=== PATIENT | male | born 2000 | race African-American/Black ===

== ENCOUNTER 2019-04-16 19:53 | Emergency (ER) | payer OTHER ==
[~2019-04-16] VITALS: Ht 177.8 cm; Wt 68.0 kg
[2019-04-16 22:14] LABS: MCH 28.9 pg (26.0-34.0); RDW 12.8 % (10.5-14.5); WBC 2.6 thou/uL (4.0-11.0)
[2019-04-16 22:16] LABS: MCV 84.9 fL (80.0-100.0); PLATELET COUNT 115 thou/uL (150-400); RBC 5.89 mil/uL (4.50-6.00)
[2019-04-16 22:29] LABS: CALCIUM 8.7 mg/dL (8.5-10.1); CREATININE 1.1 mg/dL (0.7-1.3); POTASSIUM 4.3 mmol/L (3.5-5.1)
[2019-04-16 22:32] LABS: ALBUMIN 3.9 g/dL (3.4-5.0); TOTAL BILIRUBIN 0.3 mg/dL (<0.1-1.0)
[2019-04-16] MEDS ORDERED: UNKNOWN MEDICATION (23:11)
[2019-04-16 23:14] LABS: ABSOLUTE NEUTROPHILS 1.2 thou/uL (1.4-8.2); ATYPICAL LYMPHS 3 %; LARGE PLATELETS FEW
[2019-04-16] MEDS ORDERED: IBUPROFEN 600600 M1 PO (23:20)
[2019-04-16 23:45] VITALS: BP 123/71
== END 2019-04-16 23:30 | disposition home or self-care (01) ==
LOC: ER 19:53
PROVIDERS: Physician Assistant
DX: B34.9 Viral infection, unspecified (principal); M79.18 Myalgia, other site; R19.7 Diarrhea, unspecified

== ENCOUNTER 2019-12-12 13:37 | Emergency (ER) | payer BC, OTHER ==
[~2019-12-12] VITALS: Ht 177.8 cm; Wt 69.0 kg
[~2019-12-12 13:37] MED LIST: IBUPROFEN 600600 M1 PO; UNKNOWN MEDICATION
[2019-12-12 13:40] VITALS: BP 147/87
[2019-12-12] MEDS ORDERED: SYMTUZA 800-151 EACH PO (13:49)
== END 2019-12-12 14:43 | disposition home or self-care (01) ==
LOC: ER 13:37
DX: S00.451A Superficial foreign body of right ear, initial encounter (principal); Z79.899 Other long term (current) drug therapy; X58.XXXA Exposure to other specified factors, initial encounter; Y93.89 Activity, other specified; Y92.89 Other specified places as the place of occurrence of the external cause; Y99.9 Unspecified external cause status

== ENCOUNTER 2019-12-14 22:35 | Emergency (ER) | payer BC, OTHER ==
[~2019-12-14] VITALS: Ht 177.8 cm; Wt 69.0 kg
[~2019-12-14 22:35] MED LIST changes: +SYMTUZA 800-151 EACH PO
[2019-12-14] MEDS ORDERED: AMOXICILLIN 50500 M1 PO (23:52)
[2019-12-14] MEDS ORDERED: MOBIC15 MG PO (23:52)
[2019-12-15 00:07] VITALS: BP 135/89
== END 2019-12-15 00:08 | disposition home or self-care (01) ==
LOC: ER 22:35
DX: H66.41 Suppurative otitis media, unspecified, right ear (principal); I10 Essential (primary) hypertension; B20 Human immunodeficiency virus [HIV] disease; Z79.899 Other long term (current) drug therapy